=== PATIENT | female | born 1955 | race Caucasian/White ===

== ENCOUNTER 2017-07-17 07:13 | Inpatient (IN) | payer OTHER ==
[2017-07-17] MEDS: SOD CHLORIDE 0.9% 1,000 ML IV (07:00)
[~2017-07-17 07:13] MED LIST: CEFAZOLIN 1 GM/50 ML (PMX) 50 ML IVPB
[2017-07-17] MEDS ORDERED: DEXAMETHASONE 4 MG/ML 1 ML INJ (09:23)
[2017-07-17] MEDS ORDERED: PROPOFOL 20 ML (09:23)
[2017-07-17] MEDS ORDERED: CEFAZOLIN 1 GM INJ (09:23)
[2017-07-17] MEDS ORDERED: MIDAZOLAM 1 MG/ML 2 ML INJ ×2 (09:23→09:24)
[2017-07-17] MEDS ORDERED: GLYCOPYRROLATE 0.4 MG INJ (09:23)
[2017-07-17] MEDS ORDERED: FENTAnyl 50 MCG/ML VIAL ×2 (09:23→10:25)
[2017-07-17] MEDS ORDERED: ONDANSETRON 4 MG INJ (09:23)
[2017-07-17] MEDS ORDERED: ROCURONIUM 50 MG INJ (09:23)
[2017-07-17] MEDS ORDERED: NEOSTIGMINE 3 MG/3 ML SYRINGE (09:23)
[2017-07-17 09:54] LABS: INR 1.12; PROTIME 14.6 Sec (11.9-14.9); PT RATIO 1.1
[2017-07-17] MEDS ORDERED: PIPER-TAZO 3.375 GM IV (PMX) 100 ML (09:56)
[2017-07-17 10:00] LABS: PARTIAL THROMBOPLASTIN TIME 36.1 Sec (25.0-35.0)
[2017-07-17] MEDS ORDERED: MIDAZOLAM 1 MG/ML 2 ML INJ IV (10:00)
[2017-07-17] MEDS ORDERED: hydrALAzine 20 MG INJ IV (10:00)
[2017-07-17] MEDS ORDERED: FENTAnyl 50 MCG/ML VIAL IV ×2 (10:00)
[2017-07-17] MEDS ORDERED: ALBUTEROL 0.083% (NEB) 2.5 MG/3 ML AMP HHN (10:00)
[2017-07-17] MEDS ORDERED: TRIMETHOBENZAMIDE 100 MG/ML VIAL IM (10:00)
[2017-07-17] MEDS ORDERED: HYDROmorphONE (0.2 MG/ML) 10ML SYG IV ×3 (10:00)
[2017-07-17] MEDS ORDERED: EPHEDrine SULFATE 50 MG/5 ML SYG IV (10:00)
[2017-07-17] MEDS ORDERED: IPRATROPIUM (NEB) 0.5 MG/2.5 ML AMP HHN (10:00)
[2017-07-17] MEDS ORDERED: LABETALOL HCL 20MG INJ IV (10:00)
[2017-07-17] MEDS ORDERED: MEPERIDINE 25 MG INJ IV (10:00)
[2017-07-17] MEDS ORDERED: OXYCODONE/ACETAMINOPHEN (5/325) TAB PO ×2 (10:00)
[2017-07-17] MEDS ORDERED: DIPHENHYDRAMINE 50 MG INJ IV (10:00)
[2017-07-17] MEDS ORDERED: SUGAMMADEX SODIUM 200 MG/2 ML VIAL IV (11:12)
[2017-07-17] MEDS ORDERED: ACETAMINOPHEN 1000MG/100ML IV 100 ML IVPB (11:30)
[2017-07-17] MEDS: FENTAnyl 50 MCG/ML VIAL IV (11:58)
[2017-07-17] MEDS: ONDANSETRON 4 MG INJ IV ×2 (11:58→19:36)
[2017-07-17] MEDS: morphine 1 MG/ML 30 ML (PCA) IV ×2 (12:24→22:02)
[2017-07-17] MEDS: D5W-0.45 NACL + KCL 20 MEQ 1,000 ML IV ×2 (13:46→21:09)
[2017-07-18] MEDS: D5W-0.45 NACL + KCL 20 MEQ 1,000 ML IV ×4 (03:26→19:40)
[2017-07-18] MEDS: MULTIVITAMINS 10 ML, THIAMINE 100 MG, FOLIC ACID 1 MG in SOD CHLORIDE 0.9% 1,000 ML IVPB (10:05)
[2017-07-18 11:12] LABS: ADD MAN DIFF? NO
[2017-07-18 11:16] LABS: WHITE BLOOD COUNT 13.5 10^3/ul (4.8-10.8)
[2017-07-18 11:16] LABS: BASOPHILS % 0.1 % (0.0-2.0); HEMATOCRIT 33.6 % (37.0-47.0); HEMOGLOBIN 11.3 g/dl (12.0-16.0); LYMPHOCYTES % 7.1 % (15.0-51.0); MEAN CORPUSCULAR HGB CONC 33.6 g/dl (32.0-37.0); MEAN CORPUSCULAR VOLUME 86.2 fl (82.0-101.0); MEAN PLATELET VOLUME 11.3 fl (7.4-10.4); MONOCYTE # 0.6 10^3/ul (0.3-0.9); MONOCYTES % 4.6 % (0.0-11.0); NEUTROPHIL # 11.9 10^3/ul (1.6-7.5); PLATELET COUNT 162 10^3/UL (140-415)
[2017-07-18 11:35] LABS: ANION GAP 15 (8-16); BLOOD UREA NITROGEN 5 mg/dl (7-20); CALCIUM 9.2 mg/dl (8.4-10.2); CARBON DIOXIDE 29 mmol/L (21-31); CHLORIDE 103 mmol/L (97-110); CREATININE 0.66 mg/dl (0.44-1.00); GLUCOSE 104 mg/dl (70-220); MAGNESIUM 1.9 mg/dl (1.7-2.5); POTASSIUM 3.8 mmol/L (3.5-5.1); PT RATIO 1.1; SODIUM 143 mmol/L (135-144)
[2017-07-18 12:19] LABS: INR 1.05; PARTIAL THROMBOPLASTIN TIME 30.8 Sec (25.0-35.0); PROTIME 13.8 Sec (11.9-14.9)
[2017-07-18] MEDS: ONDANSETRON 4 MG INJ IV ×2 (13:54→20:11)
[2017-07-19] MEDS: ONDANSETRON 4 MG INJ IV (04:11)
[2017-07-19] MEDS: D5W-0.45 NACL + KCL 20 MEQ 1,000 ML IV ×3 (04:13→20:37)
[2017-07-19] MEDS: PANTOPRAZOLE 40 MG INJ IV ×2 (06:11→21:48)
[2017-07-19] MEDS: MULTIVITAMINS 10 ML, THIAMINE 100 MG, FOLIC ACID 1 MG in SOD CHLORIDE 0.9% 1,000 ML IVPB (09:00)
[2017-07-19 15:11] LABS: ADD MAN DIFF? NO
[2017-07-19 15:17] LABS: WHITE BLOOD COUNT 9.3 10^3/ul (4.8-10.8)
[2017-07-19 15:17] LABS: BASOPHILS % 0.4 % (0.0-2.0); EOSINOPHILS % 0.2 % (0.0-7.0); HEMATOCRIT 34.4 % (37.0-47.0); HEMOGLOBIN 11.4 g/dl (12.0-16.0); LYMPHOCYTES # 1.3 10^3/ul (0.8-2.9); LYMPHOCYTES % 14.1 % (15.0-51.0); MEAN CORPUSCULAR HEMOGLOBIN 28.9 pg (29.0-33.0); MEAN CORPUSCULAR HGB CONC 33.1 g/dl (32.0-37.0); MEAN CORPUSCULAR VOLUME 87.1 fl (82.0-101.0); MEAN PLATELET VOLUME 10.8 fl (7.4-10.4); MONOCYTE # 0.6 10^3/ul (0.3-0.9); MONOCYTES % 6.7 % (0.0-11.0); NEUTROPHIL # 7.3 10^3/ul (1.6-7.5); NEUTROPHILS % 78.4 % (39.0-77.0); PLATELET COUNT 140 10^3/UL (140-415); RED BLOOD COUNT 3.95 10^6/ul (4.20-5.40); RED CELL DISTRIBUTION WIDTH 13.2 % (11.5-14.5)
[2017-07-19 15:39] LABS: ANION GAP 14 (8-16); BLOOD UREA NITROGEN 7 mg/dl (7-20); CALCIUM 8.9 mg/dl (8.4-10.2); CARBON DIOXIDE 30 mmol/L (21-31); CHLORIDE 103 mmol/L (97-110); CREATININE 0.79 mg/dl (0.44-1.00); GLUCOSE 88 mg/dl (70-220); MAGNESIUM 1.9 mg/dl (1.7-2.5); PHOSPHORUS 3.1 mg/dl (2.5-4.9); SODIUM 143 mmol/L (135-144)
[2017-07-19 15:46] LABS: INR 1.05; PARTIAL THROMBOPLASTIN TIME 30.3 Sec (25.0-35.0); PROTIME 13.8 Sec (11.9-14.9); PT RATIO 1.1
[2017-07-20] MEDS: D5W-0.45 NACL + KCL 20 MEQ 1,000 ML IV ×3 (05:58→19:26)
[2017-07-20] MEDS: PANTOPRAZOLE 40 MG INJ IV ×2 (06:00→18:00)
[2017-07-20] MEDS: MULTIVITAMINS 10 ML, THIAMINE 100 MG, FOLIC ACID 1 MG in SOD CHLORIDE 0.9% 1,000 ML IVPB ×2 (09:00→16:05)
[2017-07-20 11:28] LABS: ADD MAN DIFF? NO
[2017-07-20 11:30] LABS: BASOPHILS % 0.2 % (0.0-2.0); EOSINOPHILS % 0.2 % (0.0-7.0); HEMATOCRIT 36.1 % (37.0-47.0); LYMPHOCYTES # 1.3 10^3/ul (0.8-2.9); LYMPHOCYTES % 15.8 % (15.0-51.0); MEAN CORPUSCULAR HEMOGLOBIN 28.8 pg (29.0-33.0); MEAN CORPUSCULAR HGB CONC 33.2 g/dl (32.0-37.0); MEAN CORPUSCULAR VOLUME 86.8 fl (82.0-101.0); MEAN PLATELET VOLUME 10.4 fl (7.4-10.4); MONOCYTE # 0.5 10^3/ul (0.3-0.9); MONOCYTES % 6.2 % (0.0-11.0); NEUTROPHIL # 6.2 10^3/ul (1.6-7.5); NEUTROPHILS % 77.4 % (39.0-77.0); PLATELET COUNT 161 10^3/UL (140-415); RED BLOOD COUNT 4.16 10^6/ul (4.20-5.40); RED CELL DISTRIBUTION WIDTH 13.2 % (11.5-14.5)
[2017-07-20 11:30] LABS: WHITE BLOOD COUNT 8.1 10^3/ul (4.8-10.8)
[2017-07-20 11:51] LABS: INR 1.01; PROTIME 13.4 Sec (11.9-14.9)
[2017-07-20 11:52] LABS: PARTIAL THROMBOPLASTIN TIME 27.5 Sec (25.0-35.0)
[2017-07-20 11:55] LABS: ANION GAP 14 (8-16); BLOOD UREA NITROGEN 7 mg/dl (7-20); CARBON DIOXIDE 29 mmol/L (21-31); CHLORIDE 104 mmol/L (97-110); CREATININE 0.76 mg/dl (0.44-1.00); GLUCOSE 111 mg/dl (70-220); MAGNESIUM 1.9 mg/dl (1.7-2.5); PHOSPHORUS 3.1 mg/dl (2.5-4.9); POTASSIUM 3.7 mmol/L (3.5-5.1); SODIUM 143 mmol/L (135-144)
[2017-07-20] MEDS: CEPASTAT LOZENGE MT (18:24)
[2017-07-20] MEDS ORDERED: ZOLPIDEM 5 MG TAB PO (20:00)
[2017-07-20] MEDS: PE/SHARK OIL/MO/PETROL 30 GM OINT PR (21:59)
[2017-07-20] MEDS: LORAZEPAM 2 MG INJ IV (23:42)
[2017-07-21] MEDS: D5W-0.45 NACL + KCL 20 MEQ 1,000 ML IV ×4 (00:57→20:49)
[2017-07-21] MEDS: PANTOPRAZOLE 40 MG INJ IV ×2 (05:36→18:19)
[2017-07-21] MEDS: MULTIVITAMINS 10 ML, THIAMINE 100 MG, FOLIC ACID 1 MG in SOD CHLORIDE 0.9% 1,000 ML IVPB ×2 (09:00→12:15)
[2017-07-21 12:21] LABS: ADD MAN DIFF? NO
[2017-07-21 12:23] LABS: BASOPHILS % 0.3 % (0.0-2.0); EOSINOPHILS # 0.1 10^3/ul (0.0-0.5); HEMATOCRIT 34.1 % (37.0-47.0); HEMOGLOBIN 11.3 g/dl (12.0-16.0); LYMPHOCYTES # 1.1 10^3/ul (0.8-2.9); LYMPHOCYTES % 17.1 % (15.0-51.0); MEAN CORPUSCULAR HEMOGLOBIN 28.8 pg (29.0-33.0); MEAN CORPUSCULAR HGB CONC 33.1 g/dl (32.0-37.0); MEAN PLATELET VOLUME 10.2 fl (7.4-10.4); MONOCYTE # 0.4 10^3/ul (0.3-0.9); MONOCYTES % 6.1 % (0.0-11.0); NEUTROPHIL # 4.7 10^3/ul (1.6-7.5); NEUTROPHILS % 75.2 % (39.0-77.0); PLATELET COUNT 150 10^3/UL (140-415); RED BLOOD COUNT 3.92 10^6/ul (4.20-5.40); RED CELL DISTRIBUTION WIDTH 13.1 % (11.5-14.5)
[2017-07-21 12:23] LABS: WHITE BLOOD COUNT 6.2 10^3/ul (4.8-10.8)
[2017-07-21 12:43] LABS: ANION GAP 12 (8-16); BLOOD UREA NITROGEN 7 mg/dl (7-20); CALCIUM 9.1 mg/dl (8.4-10.2); CARBON DIOXIDE 30 mmol/L (21-31); CHLORIDE 104 mmol/L (97-110); CREATININE 0.73 mg/dl (0.44-1.00); GLUCOSE 100 mg/dl (70-220); POTASSIUM 3.9 mmol/L (3.5-5.1); SODIUM 142 mmol/L (135-144)
[2017-07-21] MEDS: PE/SHARK OIL/MO/PETROL 30 GM OINT PR (17:07)
[2017-07-22] MEDS: D5W-0.45 NACL + KCL 20 MEQ 1,000 ML IV ×3 (05:15→22:16)
[2017-07-22] MEDS: PANTOPRAZOLE 40 MG INJ IV ×2 (05:15→18:16)
[2017-07-22] MEDS: MULTIVITAMINS 10 ML, THIAMINE 100 MG, FOLIC ACID 1 MG in SOD CHLORIDE 0.9% 1,000 ML IVPB (10:22)
[2017-07-22 11:21] LABS: ADD MAN DIFF? NO
[2017-07-22 11:24] LABS: BASOPHILS % 0.6 % (0.0-2.0); EOSINOPHILS # 0.1 10^3/ul (0.0-0.5); EOSINOPHILS % 1.8 % (0.0-7.0); HEMATOCRIT 29.4 % (37.0-47.0); HEMOGLOBIN 9.7 g/dl (12.0-16.0); LYMPHOCYTES # 0.9 10^3/ul (0.8-2.9); LYMPHOCYTES % 17.1 % (15.0-51.0); MEAN CORPUSCULAR HEMOGLOBIN 28.4 pg (29.0-33.0); MEAN CORPUSCULAR VOLUME 86.2 fl (82.0-101.0); MEAN PLATELET VOLUME 10.7 fl (7.4-10.4); MONOCYTE # 0.4 10^3/ul (0.3-0.9); MONOCYTES % 8.4 % (0.0-11.0); NEUTROPHIL # 3.6 10^3/ul (1.6-7.5); NEUTROPHILS % 71.9 % (39.0-77.0); PLATELET COUNT 135 10^3/UL (140-415); RED BLOOD COUNT 3.41 10^6/ul (4.20-5.40); RED CELL DISTRIBUTION WIDTH 13.4 % (11.5-14.5)
[2017-07-22 11:41] LABS: ANION GAP 11 (8-16); BLOOD UREA NITROGEN 6 mg/dl (7-20); CALCIUM 8.9 mg/dl (8.4-10.2); CARBON DIOXIDE 29 mmol/L (21-31); CHLORIDE 106 mmol/L (97-110); CREATININE 0.72 mg/dl (0.44-1.00); GLUCOSE 87 mg/dl (70-220); POTASSIUM 3.8 mmol/L (3.5-5.1); SODIUM 142 mmol/L (135-144)
[2017-07-22] MEDS ORDERED: DIATR MEGLU/DIATRIZOATE SODIUM 120 ML BTL (14:12)
[2017-07-22] MEDS: LORAZEPAM 2 MG INJ IV (23:35)
[2017-07-23] MEDS: D5W-0.45 NACL + KCL 20 MEQ 1,000 ML IV ×3 (03:18→11:26)
[2017-07-23] MEDS: PANTOPRAZOLE 40 MG INJ IV ×2 (05:49→17:47)
[2017-07-23 06:08] LABS: ADD MAN DIFF? NO
[2017-07-23 06:15] LABS: WHITE BLOOD COUNT 5.5 10^3/ul (4.8-10.8)
[2017-07-23 06:15] LABS: BASOPHILS % 0.4 % (0.0-2.0); EOSINOPHILS # 0.1 10^3/ul (0.0-0.5); EOSINOPHILS % 1.6 % (0.0-7.0); HEMATOCRIT 28.5 % (37.0-47.0); HEMOGLOBIN 9.4 g/dl (12.0-16.0); LYMPHOCYTES # 0.9 10^3/ul (0.8-2.9); LYMPHOCYTES % 16.5 % (15.0-51.0); MEAN CORPUSCULAR HEMOGLOBIN 28.9 pg (29.0-33.0); MEAN CORPUSCULAR VOLUME 87.7 fl (82.0-101.0); MEAN PLATELET VOLUME 10.2 fl (7.4-10.4); MONOCYTE # 0.5 10^3/ul (0.3-0.9); MONOCYTES % 8.1 % (0.0-11.0); PLATELET COUNT 146 10^3/UL (140-415); RED BLOOD COUNT 3.25 10^6/ul (4.20-5.40); RED CELL DISTRIBUTION WIDTH 13.4 % (11.5-14.5)
[2017-07-23 06:36] LABS: ANION GAP 14 (8-16); BLOOD UREA NITROGEN 8 mg/dl (7-20); CALCIUM 8.7 mg/dl (8.4-10.2); CARBON DIOXIDE 27 mmol/L (21-31); CHLORIDE 109 mmol/L (97-110); CREATININE 0.72 mg/dl (0.44-1.00); GLUCOSE 98 mg/dl (70-220); POTASSIUM 3.5 mmol/L (3.5-5.1); SODIUM 146 mmol/L (135-144)
[2017-07-23] MEDS: MULTIVITAMINS 10 ML, THIAMINE 100 MG, FOLIC ACID 1 MG in SOD CHLORIDE 0.9% 1,000 ML IVPB (09:46)
[2017-07-23] MEDS: LORAZEPAM 2 MG INJ IV (23:44)
[2017-07-24] MEDS: PANTOPRAZOLE 40 MG INJ IV (05:16)
[2017-07-24 06:01] LABS: ADD MAN DIFF? NO
[2017-07-24 06:10] LABS: BASOPHILS % 0.2 % (0.0-2.0); EOSINOPHILS # 0.1 10^3/ul (0.0-0.5); EOSINOPHILS % 1.5 % (0.0-7.0); HEMATOCRIT 28.6 % (37.0-47.0); HEMOGLOBIN 9.4 g/dl (12.0-16.0); LYMPHOCYTES # 1.2 10^3/ul (0.8-2.9); LYMPHOCYTES % 22.9 % (15.0-51.0); MEAN CORPUSCULAR HEMOGLOBIN 28.8 pg (29.0-33.0); MEAN CORPUSCULAR HGB CONC 32.9 g/dl (32.0-37.0); MEAN CORPUSCULAR VOLUME 87.7 fl (82.0-101.0); MEAN PLATELET VOLUME 10.9 fl (7.4-10.4); MONOCYTE # 0.4 10^3/ul (0.3-0.9); MONOCYTES % 7.8 % (0.0-11.0); NEUTROPHIL # 3.6 10^3/ul (1.6-7.5); NEUTROPHILS % 67.2 % (39.0-77.0); PLATELET COUNT 136 10^3/UL (140-415); RED BLOOD COUNT 3.26 10^6/ul (4.20-5.40); RED CELL DISTRIBUTION WIDTH 13.4 % (11.5-14.5)
[2017-07-24 06:10] LABS: WHITE BLOOD COUNT 5.4 10^3/ul (4.8-10.8)
[2017-07-24 06:33] LABS: ANION GAP 14 (8-16); BLOOD UREA NITROGEN 7 mg/dl (7-20); CALCIUM 8.8 mg/dl (8.4-10.2); CARBON DIOXIDE 28 mmol/L (21-31); CHLORIDE 108 mmol/L (97-110); CREATININE 0.75 mg/dl (0.44-1.00); GLUCOSE 76 mg/dl (70-220); POTASSIUM 3.7 mmol/L (3.5-5.1); SODIUM 146 mmol/L (135-144)
== END 2017-07-24 18:50 | disposition home or self-care (01) | DRG 331 ==
LOC: REC 07:13 → MS2 13:10
PROC: 0DBB0ZZ Excision of Ileum, Open Approach (ICD-10-PCS; principal; 2017-07-17 09:00)
DX: Z43.2 Encounter for attention to ileostomy (principal); I10 Essential (primary) hypertension; Z90.49 Acquired absence of other specified parts of digestive tract; D69.6 Thrombocytopenia, unspecified
CPT/HCPCS: 74250; 80048; 83735; 84100; 85025; 85610; 85730; 86850; 86870; 86900; 86901; 87086; 88305; 97110; 97116; 97161; 97530

== ENCOUNTER 2017-08-10 16:25 | Emergency (ER) | payer OTHER | END 2017-08-10 19:20 | disposition home or self-care (01) | LOC: FTE 19:20 | DX: Z48.01 Encounter for change or removal of surgical wound dressing (principal) | CPT/HCPCS: 99281; Z7502 ==

== ENCOUNTER 2017-12-29 11:56 | Day surgery (SDC) | payer OTHER ==
[2017-12-29] MEDS ORDERED: FENTAnyl 50 MCG/ML VIAL (13:31)
[2017-12-29] MEDS ORDERED: MIDAZOLAM 1 MG/ML 2 ML INJ (13:32)
== END 2017-12-29 13:35 | disposition home or self-care (01) ==
LOC: GIL 11:56
DX: Z12.11 Encounter for screening for malignant neoplasm of colon (principal); K57.30 Diverticulosis of large intestine without perforation or abscess without bleeding; K64.4 Residual hemorrhoidal skin tags; K64.8 Other hemorrhoids
CPT/HCPCS: 45378